=== PATIENT | female | born 1960 | race Caucasian/White ===

== ENCOUNTER 2018-04-07 13:45 | Outpatient (RCR) | payer OTHER ==
--- NOTE | 2018-01-20 15:10 | PT INITIAL EVALUATION ---
MEDICAL DIAGNOSIS: R knee pain and swelling TREATMENT DIAGNOSIS: Same, question of Piña's cyst and small mass R popliteal fossa DATE OF ONSET: 08/12/15 SUBJECTIVE: Liat Zamora presents to PT for two things, one, a HEP for her one month travel in [place] (leaves 01/21/18), and two, to work on R knee to reduce pain with walking, sitting cross-legged and doing yoga. Liat relates her R hamstring feels tight when her popliteal fossa is sore, and now her R lateral hip is beginning to ache. Pain location is R popliteal fossa, anterior R knee joint line and patella and described as ache. Pain scale is 4 on a ten point pain scale usually, 8/10 with flexion activity. Pain is worse with full knee flexion, walking on uneven surfaces, sitting cross-legged and better with ice. REHAB PROBLEM LIST: Increased Pain Decreased ROM Decreased Strength Decreased Gait PREVIOUS MEDICAL HISTORY: R knee scope ~[address] Marciano Dixon. 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 OBJECTIVE: Posture: R knee flexed 5 degrees, L +5 degrees. R patella is lateral in the groove, touching the lateral femoral condyle. ROM: R knee A/PROM 5/3 - 135/137 degrees, L knee extension 0/+5 degrees, full flexion. Strength: R quad 5-/5, with min. VMO contraction Palpation: Both a Piña's cyst and a semi-hard mass are palpable in the R popliteal fossa, the Piña's cyst midline and the mass just lateral to the hamstring tendons. Special Tests: Tight IT band, quad, calf while hamstring flexibility 70 degrees. Mobility: Patellar mobility WNL. Gait: Mild prolonged L stance, reduced R push off and reduced R WS during R stance. ASSESSMENT: Liat Zamora presents with Piña's cyst and unknown mass, lateral tracking patella and muscle imbalance affecting knee flexion and ambulation tolerance, creating knee pain. Short Term Goals 1 month: Liat relates she can control knee pain with her HEP. 2 months: Midline patellar in resting stance, ambulates with even cadance, even WS, popliteal tightness reduced 50%. Patient's Goals Learn HEP to control knee edema and pain for [place] travel, reduce knee pain. PLAN: Patient to be seen for Manual Therapy Strengthening/condition Ice/Heat Range of Motion Stretching Neuromuscular Re-ed Electrical Stim Gait Trg/Balance Trg Home Exercise Program 2x/Week for 2 Months Thank you for this referral. If you have any questions, comments, or concerns about this report or plan, please contact me at . [facility]
--- NOTE | 2018-02-25 13:58 | PT PLAN OF CARE ---
Physician: Dr. Crystal Cleveland Patient is being seen: twice Therapist: Yarely Middleton, PT Medical Diagnosis: R knee pain and swelling Treatment Diagnosis: Same, question of Piña's cyst and small mass R popliteal fossa Date of Onset: 08/12/15 Date of Initial Evaluation: 01/20/18 Date patient was last seen: 02/25/18 Number of treatments: 2 Number of cancellations/No shows: 0 INTERVENTIONS: R VMO, G. medius strengthening, stretching and HEP GOALS: 1 month: Liat relates she can control knee pain with her HEP. (partially met) 2 months: Midline patellar in resting stance (progressing), ambulates with even cadance, even WS (both met), popliteal tightness reduced 50% (unknown). PATIENT'S GOAL: Learn HEP to control knee edema and pain for [place] travel (met) , reduce knee pain (progressing). Patient Compliance: Good Prognosis: Good Reasons for continuing therapy: S: Liat relates her R knee doesn't hurt but her quad will swell with standing for hours. She's returned from [place] and relates she taped her knee but didn't do much exercise. ROM R knee is improved to 0 - 145 degrees PROM. R patella is midline in the groove with taping. Strength: Min. VMO contraction Palpation: The semi-hard mass is larger near the hamstring tendons while, the Piña's cyst midline remains the same size. Special Tests: Flexibility is improved. Mobility: Patellar mobility WNL. Gait: Still with femoral IR beyond midstance, even cadance, WS now. A/P: Liat Zamora has a larger mass near her hamstrings tendons, has improved ROM, needs to muscle balance about her knee. She's seen Dr. Marciano Dixon in 2014 and will call his office about her mass. If you agree, we'll work patellofemoral tracking PT 1x/week 6 weeks. Thank you. DEANNA
--- NOTE | 2018-04-07 14:34 | PT PLAN OF CARE ---
Physician: Dr. Crystal Cleveland Patient is being seen: 1x/week to 2 weeks Therapist: Yarely Middleton PT Medical Diagnosis: R knee pain and swelling 04/07/18: question of R lateral meniscal tear Treatment Diagnosis: Same, question of Piña's cyst and small mass R popliteal fossa 04/07/18: question of R lateral meniscal tear Date of Onset: 08/12/15, new injury: 04/01/18 Date of Initial Evaluation: 01/20/18, re-evaluation 04/07/18 Date patient was last seen: 04/07/18 Number of treatments: 5 Number of cancellations/No shows: 2 INTERVENTIONS: HEP, re-evaluation GOALS: 1 month: Liat relates she can control knee pain with her HEP. (partially met) 2 months: Midline patellar in resting stance (now not met), ambulates with even cadance, even WS (now not met), popliteal tightness reduced 50% (not met). PATIENT'S GOAL: Learn HEP to control knee edema and pain for [place] travel (met), reduce knee pain (not met). Patient Compliance: Excellent Prognosis: Good Reasons for holding therapy: S: Liat say Gene Ascencio PA-C and US was unclear about Piña's cyst and R medial hamstring tissue. On 04/01/18, a 60 lb. hay bale hit her R lateral knee, and now her knee catches and gives way, causing her to fall when she twists on her feet. Posture: R knee flexed 15 degrees, L +5 degrees. R patella is midline in the groove, with a lateral tilt. ROM: R knee A/PROM 15/15 - 125/130 degrees with pain end ROM flexion, clicking. Special tests: New clicking, pain with Elicia's test. Grade I LCL laxity is new. Strength: Mod. VMO contraction, lateral tracking patella again. Palpation: Both a Piña's cyst and a semi-hard mass are palpable in the R popliteal fossa, the Piña's cyst midline and the mass just lateral to the medial hamstring tendons. The mass is still the same size. Gait: Prolonged L stance, R knee flexed throughout the gait cycle. Mobility: Patellar mobility WNL. A/P: Liat Zamora has sustained a lateral R knee injury and has regressed in ROM, gait and possibly has a R lateral meniscal or lateral compartment cartilage tear. She would like to seek an orthopedic consult in town. I'll hold PT while she does this. We may need to begin new knee PT in the immediate future. Thank you. DEANNA
== END 2018-04-20 ==
LOC: PT 13:45
PROVIDERS: ATTEND Family Medicine
DX: M25.561 Pain in right knee (principal); M25.461 Effusion, right knee; M25.551 Pain in right hip; M71.22 Synovial cyst of popliteal space [Baker], left knee
CPT/HCPCS: 97161

== ENCOUNTER → 2018-06-23 | Outpatient (CLI) | payer OTHER ==
--- NOTE | 2018-06-23 16:12 | RADIOLOGY IMAGING REPORT ---
FACILITY: [facility] PATIENT NAME: SHILPA MONCADA : [id number] MR: [id number] V: [id number] EXAM DATE: [id number] ORDERING PHYSICIAN: HUMPHREY DIAZ TECHNOLOGIST: Merry Villarreal PROCEDURE:BILATERAL DIGITAL SCREENING MAMMOGRAM WITH CAD ASSISTED INTERPRETATION & 3D TOMOSYNTHESIS COMPARISON:Prior mammograms 07/30/16, 05/26/14. INDICATIONS:SCREENING FINDINGS: The breasts are heterogeneously dense. No suspicious mass, microcalcifications or architectural distortion. No change compared to priors. DIAGNOSTIC CATEGORY 1--NEGATIVE. RECOMMENDATIONS: ROUTINE MAMMOGRAM AND CLINICAL EVALUATION. IMPRESSION: BIRADS 1: Negative. Dictated by: Sherwin Mccullough on 06/23/2018 at 13:52 Transcribed by: SIVAKUMAR on 06/23/2018 at 13:56 Approved by: Sherwin Mccullough on 06/23/2018 at 16:11 [facility]
== END ==
LOC: MAMO 01:21
PROVIDERS: ATTEND Family Medicine
DX: Z12.31 Encounter for screening mammogram for malignant neoplasm of breast (principal)
CPT/HCPCS: 77063; 77067

== ENCOUNTER 2018-08-07 13:00 | Outpatient (RCR) | payer OTHER ==
--- NOTE | 2018-07-15 18:01 | PT INITIAL EVALUATION ---
MEDICAL DIAGNOSIS: Leg pain TREATMENT DIAGNOSIS: Lumbar anterolisthesis, B knee pain DATE OF ONSET: 05/21/18 SUBJECTIVE: Liat Zamora presents to PT for B knee pain, diffuse LE global ache and LE weakness. She flew 4 hours to [facility] 05/21/18, [facility] and developed severe LBP, LE weakness to the point she needed to crawl up stairs instead of walking due to weakness. Liat is doing physical therapy for her knees at [facility] for manual manipulation and pain management. I worked with Liat on her R knee for maltracking patella and knee pain from January to May 13. 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 Her L knee has been aching this fall. She is seeing Dr. Wolf who recommends R TKA, L knee scope. She is considering knee injections. She saw Dr. Rebollar in [place] where lumbar MRI is positive for lumbar slippage, per Liat. EMG shows changes at the L quadriceps. Prolonged waking or sitting creates ache in the posterior hamstrings and posterior knees, to proximal calves, 7-8/10 pain scale. 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 REHAB PROBLEM LIST: Increased Pain Decreased ROM Decreased Strength Decreased Function Decreased Gait PREVIOUS MEDICAL HISTORY: R knee scope ~[address] Marciano Dixon. MRI is positive for R ACL loss, positive Piña's cyst, B knee bone bruise, L MMT. 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 Liat relates she did gymnastics as a child with lots of back bends. OBJECTIVE: Posture: Step off palpable to the L4/5 or L5/S1 level. B calves are smaller than Liat's last visit 05/13/18. ROM: Lumbar repeated flexion reduces hamstring tightness, repeated extension 25% AROM reduces LE ache. B knee AROM extension is less than May's DC date, 15 deg. AROM extension. A/PROM B knee flexion full/full. Strength: L hip flexor and quad 4-/5, B ankle DF, peroneals, EHL 5/5, R calf 3/5, L 4/5. Special Tests: Negative SLR, femoral nerve stretch test B. R quads and L Achilles DTR's 1/3, L quads and R Achilles DTR's 2/3. Knee ligament and meniscal tests are deferred due to MRI findings. Hamstring flexibility R 60 deg., L 50 deg., tight hip flexors and IT bands. Mobility: On/off floor independently with ability to sit cross-legged. Gait: Liat's gait has worsened since May with knees flexed ~25 deg. B in gait cycles, L pelvic protraction and hip circumduction in swing phase, reduced R WS over the knee in stance, shorter step lengths. ASSESSMENT: Liat Zamora presents with L L3/4 guzman muscle weakness, anterolisthesis, altered knee ROM, B knee pain, OA, worsened gait than when she discharged from PT here two months ago. I'll take an exercise focus as she's doing manual therapy at [facility]. Liat is started on spinal ROM, isometric core lock and hip flexor strengthening HEP today. Short Term Goals One month: Liat sonia, dismounts with L LE control. Two months: Liat sits 4 hours with B LE ache 4-5/10, L guzman muscle L3/4 5-/5. Patient's Goals Strengthen legs and stop diffuse posterior knees ache. PLAN: Patient to be seen for Strengthening/condition, Range of Motion, Spinal Stabilization, Stretching, Neuromuscular Re-ed, Posture/Body mechanics, Gait Trg/Balance Trg, Home Exercise Program 1x/Week for 2 Months Thank you for this referral. If you have any questions, comments, or concerns about this report or plan, please contact me at . [facility]
--- NOTE | 2018-08-29 11:15 | PT PLAN OF CARE ---
Physician: Dr. Crystal Cleveland Patient is being seen: 2x/week Therapist: Yarely Middleton, PT Medical Diagnosis: Leg pain Treatment Diagnosis: Lumbar anterolisthesis, B knee pain Date of Onset: 05/21/18 Date of Initial Evaluation: 07/15/18 Date patient was last seen: 08/07/18 Number of treatments: 4 Number of cancellations/No shows: 0 INTERVENTIONS: Strengthening/condition, Range of Motion, Spinal Stabilization, Stretching, Home Exercise Program GOALS: One month: Liat sonia, dismounts with L LE control. met Two months: Liat sits 4 hours with B LE ache 4-10 (unknown - hasn't sat 4 hours), L guzman muscle L3/4 5-/5. (unknown - self DC) PATIENT'S GOAL: Strengthen legs (met) and stop diffuse posterior knees ache (partially met). 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 She hasn't sat for 4 hours. 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 O: At her last visit, Liat demonstrated strong core lock with exercise. A/P: Liat Zamora did well with lumbar and LE strengthening, strengthening HEP. Per her request, I'll DC PT to HEP. Thank you. DEANNA
== END 2018-08-07 18:00 | disposition home or self-care (01) ==
LOC: PT 13:00
PROVIDERS: ATTEND Family Medicine
DX: M43.16 Spondylolisthesis, lumbar region (principal); M25.562 Pain in left knee; M25.561 Pain in right knee
CPT/HCPCS: 97162